=== PATIENT | female | born 2000 | race Caucasian/White ===

== ENCOUNTER → 2021-07-05 | Outpatient (CLI) | payer OTHER | LOC: COL.RAD 13:03 | DX: M16.12 Unilateral primary osteoarthritis, left hip (principal) | CPT/HCPCS: A9585; J3301; Q9967 ==

== ENCOUNTER → 2021-11-29 | Outpatient (CLI) | payer OTHER | LOC: COL.RAD 08:16 | DX: M24.852 Other specific joint derangements of left hip, not elsewhere classified (principal) | CPT/HCPCS: J3301; Q9967 ==